=== PATIENT | male | born 1970 | race Asian ===

== ENCOUNTER 2019-08-27 13:47 | Outpatient (CLI) | payer OTHER ==
[2019-08-27 14:22] LABS: PLATELET COUNT 308 K/uL (142-355)
[2019-08-27 15:15] LABS: POTASSIUM 4.1 mmol/L (3.6-5.2)
== END 2019-08-27 20:14 | disposition home or self-care (01) ==
LOC: LAB 13:47
PROVIDERS: Nurse Practitioner Adult Health
DX: Z95.811 Presence of heart assist device (principal); I50.22 Chronic systolic (congestive) heart failure
CPT/HCPCS: 80053; 82248; 83615; 83735; 85027; 85610

== ENCOUNTER 2020-06-08 12:51 | Outpatient (CLI) | payer OTHER | END 2020-06-08 20:05 | disposition home or self-care (01) | LOC: LAB 12:51 | DX: R19.7 Diarrhea, unspecified (principal) | CPT/HCPCS: 87324; 87449 ==

== ENCOUNTER 2020-09-01 12:29 | Outpatient (CLI) | payer OTHER ==
[2020-09-01 14:45] LABS: POTASSIUM 4.1 mmol/L (3.6-5.2)
[2020-09-01 14:46] LABS: PLATELET COUNT 373 K/uL (142-355)
== END 2020-09-01 19:12 | disposition home or self-care (01) ==
LOC: LAB 12:29
PROVIDERS: Internal Medicine
DX: Z00.01 Encounter for general adult medical examination with abnormal findings (principal); I50.20 Unspecified systolic (congestive) heart failure; I27.20 Pulmonary hypertension, unspecified; E55.9 Vitamin D deficiency, unspecified; Z12.5 Encounter for screening for malignant neoplasm of prostate; D64.9 Anemia, unspecified; Z79.899 Other long term (current) drug therapy
CPT/HCPCS: 80053; 80061; 82306; 82728; 83540; 83550; 83970; 84100; 84153; 84443; 85027

== ENCOUNTER 2021-01-04 14:52 | Outpatient (CLI) | payer OTHER ==
[2021-01-04 16:29] LABS: POTASSIUM 3.8 mmol/L (3.6-5.2)
[2021-01-04 16:31] LABS: PLATELET COUNT 298 K/uL (142-355)
== END 2021-01-04 19:35 | disposition home or self-care (01) ==
LOC: LAB 14:52
PROVIDERS: ATTEND Surgery
DX: T82.7XXD Infection and inflammatory reaction due to other cardiac and vascular devices, implants and grafts, subsequent encounter (principal); L73.2 Hidradenitis suppurativa
CPT/HCPCS: 80053; 82550; 85027; 86140

== ENCOUNTER 2021-01-18 14:07 | Outpatient (CLI) | payer OTHER ==
[2021-01-18 14:19] LABS: PLATELET COUNT 294 K/uL (142-355)
[2021-01-18 14:29] LABS: POTASSIUM 3.6 mmol/L (3.6-5.2)
== END 2021-01-18 23:17 | disposition home or self-care (01) ==
LOC: LAB 14:07
PROVIDERS: ATTEND Surgery
DX: Z48.812 Encounter for surgical aftercare following surgery on the circulatory system (principal); T82.7XXD Infection and inflammatory reaction due to other cardiac and vascular devices, implants and grafts, subsequent encounter; L73.2 Hidradenitis suppurativa
CPT/HCPCS: 80053; 82550; 82553; 85027; 86140

== ENCOUNTER 2021-01-25 13:25 | Outpatient (CLI) | payer OTHER ==
[2021-01-25 13:38] LABS: PLATELET COUNT 250 K/uL (142-355)
[2021-01-25 14:21] LABS: POTASSIUM 3.4 mmol/L (3.6-5.2)
== END 2021-01-25 19:25 | disposition home or self-care (01) ==
LOC: LAB 13:25
PROVIDERS: ATTEND Surgery
DX: I50.22 Chronic systolic (congestive) heart failure (principal); L73.2 Hidradenitis suppurativa; I42.8 Other cardiomyopathies; Z95.811 Presence of heart assist device
CPT/HCPCS: 80053; 82550; 85027; 86140

== ENCOUNTER 2021-02-04 13:24 | Outpatient (CLI) | payer OTHER | END 2021-02-04 22:14 | disposition home or self-care (01) | LOC: LAB 13:24 | PROVIDERS: ATTEND Surgery | DX: I11.0 Hypertensive heart disease with heart failure (principal); I50.22 Chronic systolic (congestive) heart failure | CPT/HCPCS: 82550 ==

== ENCOUNTER 2021-02-08 15:28 | Outpatient (CLI) | payer OTHER ==
[2021-02-08 15:54] LABS: PLATELET COUNT 251 K/uL (142-355)
[2021-02-08 16:37] LABS: POTASSIUM 3.2 mmol/L (3.6-5.2)
== END 2021-02-08 21:00 | disposition home or self-care (01) ==
LOC: LAB 15:28
PROVIDERS: ATTEND Surgery
DX: I11.0 Hypertensive heart disease with heart failure (principal); I50.22 Chronic systolic (congestive) heart failure; L73.2 Hidradenitis suppurativa; I42.8 Other cardiomyopathies; I27.20 Pulmonary hypertension, unspecified; Z95.811 Presence of heart assist device
CPT/HCPCS: 80053; 82550; 85027; 86140

== ENCOUNTER 2021-03-01 14:17 | Outpatient (CLI) | payer OTHER ==
[2021-03-01 15:19] LABS: POTASSIUM 4.3 mmol/L (3.6-5.2)
== END 2021-03-01 20:52 | disposition home or self-care (01) ==
LOC: LAB 14:17
PROVIDERS: ATTEND Surgery
DX: L73.2 Hidradenitis suppurativa (principal); Z95.811 Presence of heart assist device; Z79.01 Long term (current) use of anticoagulants
CPT/HCPCS: 80048; 83735